=== PATIENT | male | born 1980 | race African-American/Black ===

== ENCOUNTER 2020-03-18 18:14 | Emergency (ER) | payer BC, SELFPAY ==
--- NOTE | ~2020-03-18 | CT_ITS ---
EXAMINATION: CT soft tissue neck w con DATE: 03/18/2020 21:00 INDICATION: Left facial swelling, patient reportedly had excision of a left submandibular duct sialol ith on 03/11/2020 TECHNIQUE: Computed tomography (CT) of the neck was performed with 75 cc of Omnipaque 350 intravenous contrast. The dose-length product (DLP) was 389.39 mGy-cm. Automated exposure control and iterative reconstruction technique were employed. COMPARISON: 01/03/2018 FINDINGS: There is been resection of the left submandibular gland and a sialolith. There is a 3.4 x 2 .6 cm fluid collection containing gas in the left submandibular region. Gas tracks into the left abigail tonsillar space. The airway is patent. No lymphadenopathy is identified. There is minimal opacificati on of the paranasal sinuses. IMPRESSION: 1. Left submandibular gland resection with gas containing fluid collection in the surgical bed, surgi nallely change/postoperative seroma versus abscess. Reviewed, dictated and finalized at location A. IMPRESSION: 1. Left submandibular gland resection with gas containing fluid collection in t he surgical bed, surgical change/postoperative seroma versus abscess.
[2020-03-18 18:33] VITALS: BP 137/71; PULSE 78; RESP 16; TEMP 36.6; O2SAT 100
[2020-03-18 20:33] LABS: Basophils Absolute Auto 0.1 K/mm3 (0.0-0.1); Basophils Percent Auto 1.5 % (0.2-1.2); Eosinophils Absolute Auto 0.2 K/mm3 (0-0.3); Eosinophils Percent Auto 3.2 % (0-4.4); Hematocrit 43.7 % (42.0-52.0); Hemoglobin 15.5 g/dL (14.0-18.0); Immature Granulocyte Absolute 0.04 K/mm3 (0.00-0.031); Immature Granulocyte Percent A 0.5 % (0-0.5); Lymphocytes Absolute Auto 3.15 K/mm3 (0.9-3.2); Lymphocytes Percent Auto 41.9 % (18.3-44.2); Mean Corpuscular HGB Conc 35.5 g/dl (32-36); Mean Corpuscular Hemoglobin 32.8 pg (26-34); Mean Corpuscular Volume 92.6 fl (80-100); Monocytes Absolute Auto 0.6 K/mm3 (0.1-0.6); Monocytes Percent Auto 7.4 % (2.6-8.5); Neutrophils Absolute Auto 3.4 K/mm3 (1.3-6.7); Neutrophils Percent Auto 45.5 % (45.5-73.1); Platelet Count Result 403 k/mm3 (150-375); Red Blood Count 4.72 M/mm3 (4.6-6.20); Red Cell Distribution Width 11.5 % (11.5-14.5); White Blood Count 7.5 K/mm3 (4.5-10.0)
[2020-03-18 20:45] LABS: Alanine Aminotransferase 17 U/L (4-50); Albumin Level 4.6 g/dL (3.5-5.1); Alkaline Phosphatase 64 U/L (38-126); Anion Gap 8 mmol/L (8-16); Aspartate Amino Transferase 28 U/L (17-59); Bilirubin,Total 0.7 mg/dL (0.2-1.3); Blood Urea Nitrogen 12 mg/dL (9-20); Calcium 9.5 mg/dL (8.4-10.2); Carbon Dioxide 32 mmol/L (22-30); Chloride 98 mmol/L (98-107); Estimated CRCL calculation 77 ml/min; Estimated Glomerular Filt Rate > 60; Glucose 94 mg/dL (75-110); Potassium 3.5 mmol/L (3.4-5.0); Sodium 138 mmol/L (137-145)
--- NOTE | 2020-03-18 20:47 | PC.NURSE ---
Pt states he's only taken prescribed hydrocodone acetaminophen 5-325 and antibiotic Cefdinir earlier today around 10AM. Antibiotic scheduled to be taken again at 10pm tonight. [employer] made aware.
--- NOTE | 2020-03-18 20:55 | PC.NURSE ---
Pt taken down to CT.
[2020-03-18 21:09] VITALS: BP 110/69; PULSE 66; RESP 18; O2SAT 100
--- NOTE | 2020-03-18 22:42 | ED.NECK ---
HPI - Neck Pain/Injury General Chief Complaint: Neck Pain/Injury Stated Complaint: L neck swelling Time Seen by Provider: 03/18/20 20:17 Source: patient Mode of arrival: ambulatory Limitations: no limitations History of Present Illness HPI Narrative: Patient presents with chief complaint of swelling to the left submandibular region the began on Saturday after having submandibular gland surgery by Dr. Mendez commercial escrow assistant on 03-11-20. Patient states that he has been taking his cefdinir as directed. Patient reports that he feels some swelling with swallowing but his been able to swallow his feet and eat foods. Patient reports that he call Dr. Valenzuela's office and was told that he cannot be seen until 03-24-20, but he is concerned so he came to the emergency department. Patient denies fever, chills, nausea, vomiting, diarrhea or any other signs of systemic infection. Related Data Home Medications Medication Instructions Recorded Confirmed atorvastatin 03/18/20 cefdinir mg 03/18/20 hydrocodone-acetaminophen 03/18/20 Allergies Allergy/AdvReac Type Severity Reaction Status Date / Time No Known Allergies Allergy Unknown Verified 03/18/20 18:40 Review of Systems Review of Systems: Narrative: CONSTITUTIONAL: Denies fever, chills, or sweats. EYES: Denies visual changes, redness, or discharge. ENT: Reports left submandibular swelling denies rhinorrhea, congestion, sore throat, or otalgia. CARDIOVASCULAR: Denies chest pain, palpitations, or edema. RESPIRATORY: Denies cough or dyspnea. GASTROINTESTINAL: Denies abdominal pain, nausea, vomiting, or diarrhea. GENITOURINARY: Denies dysuria or hematuria. SKIN: Denies rash or itching. MUSCULOSKELETAL: Denies back pain, myalgia, or joint pain NEUROLOGIC: Denies headache, numbness, dizziness, or weakness. PSYCHIATRIC: Denies anxiety or depression. PMFSH Social History Social History Gender identity (if verbalized by the patient): Male Exam Narrative: Exam Narrative: GENERAL: Well-appearing, well-nourished. HEAD: Normocephalic, atraumatic. EYES: PERRLA and EOMI. ENT: Nares clear, no rhinorrhea or epistaxis. Mucous membranes moist. Oropharynx without tonsillar hypertrophy exudate or other lesions. Bilateral TMs pearly miranda nonbulging NECK: Supple. Swelling to the left submandibular region without overlying close surgical scar. It is tender to palpation but erythema and excessive warmth is not appreciated. There is no drainage from the surgical site. Patient is able to handle his secretions without difficulty and speak clearly as his airways patent. No vertebral tenderness or loss of ROM. CHEST: Clear to auscultation. No respiratory distress. No wheezes rales or rhonchi HEART: Regular rate and rhythm. Normal peripheral pulses. ABDOMEN: Soft, nontender, nondistended, normal active bowel sounds. No bruises noted. EXTREMITIES: No acute changes in ROM. No edema. SKIN: Warm, dry, no rash. NEURO: No focal deficits. Alert and oriented x3. PSYCH: Normal mood and affect. Course Vital Signs Vital signs: Vital Signs Temperature 97.9 F 03/18/20 18:33 Pulse Rate 78 03/18/20 18:33 Respiratory Rate 16 03/18/20 18:33 Blood Pressure 137/71 03/18/20 18:33 Pulse Oximetry 100 03/18/20 18:33 Temperature 97.9 F 03/18/20 18:33 Pulse Rate 66 03/18/20 21:09 Respiratory Rate 18 03/18/20 21:09 Blood Pressure 110/69 03/18/20 21:09 Pulse Oximetry 100 03/18/20 21:09 MDM - Neck Pain/Injury MDM Narrative Medical decision making narrative: Consult with Dr. Mendez, commercial escrow assistant who performed the surgery. He states that the area is definitely seroma versus abscess. He states the patient can be seen in his office in office and on Saturday or Saturday so he should call on Saturday for appointment time. Patient should take anti-inflammatories and continue his cefdinir as directed. Differential Diagnosis Differential diagnosis: Likely other (Absce
[2020-03-18 23:06] VITALS: BP 133/72; PULSE 64; RESP 16; O2SAT 100
== END 2020-03-18 23:01 | disposition home or self-care (01) ==
PROVIDERS: Physician Assistant; Emergency Provider Emergency Medicine; PCP Emergency Medicine
DX: R22.0 Localized swelling, mass and lump, head (principal); Z98.890 Other specified postprocedural states
CPT/HCPCS: 36415; 70491; 80053; 85025; 99284; Q9967

== ENCOUNTER 2021-06-16 11:39 | Emergency (ER) | payer BC, SELFPAY ==
[2021-06-16 12:09] VITALS: BP 120/74; PULSE 88; RESP 19; TEMP 36.7; O2SAT 93
--- NOTE | 2021-06-16 13:10 | PC.NURSE ---
pt did not answer when called x 2
== END 2021-06-17 03:02 | disposition left against medical advice (07) ==
PROVIDERS: PCP Emergency Medicine
DX: Z53.21 Procedure and treatment not carried out due to patient leaving prior to being seen by health care provider (principal)
CPT/HCPCS: 99199